=== PATIENT | male | born 1945 | race African-American/Black ===

== ENCOUNTER → 2018-01-28 | Outpatient (CLI) | payer MEDICARE, OTHER ==
[~2018-01-28] MED LIST: AMLO10TA80 PO; ATEN50TA PO; ATOR20TA PO; CLON0.2T PO; FURO20TA4 PO; GLIP5TAB12 PO; HYDR-523 PO; LISI40TA4 PO; LORA10TA47 PO; MIRT15TA6 PO; PANT40TA4 PO; POLY15DR56 OP; TIOT18CA3 INH; TRAM50TA3 PO
== END | disposition home or self-care (01) ==
LOC: NM 07:20
PROVIDERS: ATTEND Urology
DX: C61 Malignant neoplasm of prostate (principal); Z90.5 Acquired absence of kidney
CPT/HCPCS: 78306; A9503